=== PATIENT | male | born 1990 | race Caucasian/White ===

== ENCOUNTER 2025-01-24 15:01 | Emergency (ER) | payer MEDICAID, OTHER ==
[~2025-01-24] VITALS: Ht 180.3 cm; Wt 111.0 kg
[2025-01-24 15:02] VITALS: O2SAT 98
[2025-01-24 15:31] VITALS: TEMP 36.9; O2SAT 96
[2025-01-24 17:33] VITALS: BP 161/94; PULSE 108; RESP 18
[2025-01-24] MEDS: IBUPROFEN 600MG TABLET PO STA (17:33)
[2025-01-24] MEDS: ACETAMINOPHEN 325MG TABLET PO STA (17:34)
[2025-01-24] MEDS ORDERED: CEPH500T MT (18:26)
== END 2025-01-24 18:42 | disposition home or self-care (01) ==
LOC: ER 15:01
DX: S30.812A Abrasion of penis, initial encounter (principal); N48.89 Other specified disorders of penis; X58.XXXA Exposure to other specified factors, initial encounter; Y93.89 Activity, other specified; Y92.89 Other specified places as the place of occurrence of the external cause; Y99.8 Other external cause status
CPT/HCPCS: 99283; Z7610